=== PATIENT | female | born 1990 | race Caucasian/White ===

== ENCOUNTER 2020-01-03 17:42 | Emergency (ER) | payer OTHER ==
[2020-01-03 18:06] VITALS: TEMP 98; BMI 68.5
--- OUTSIDE RECORDS SUMMARY | 2020-01-03 18:10 | XMS ---
:1990 Author Organization [facility] Care Team Providers Name Role Phone CONNERBRYCE DOMINGUEZONY Unavailable Unavailable ED STAFF PHYSICIAN, STAFF Unavailable Unavailable ED STAFF PHYSICIANINEZ Unavailable Unavailable JERRY PADILLA Unavailable Unavailable Re-disclosure Warning The records that you are about to access may contain information from federally- assisted alcohol or drug abuse programs. If such information is present, then the following federally mandated warning applies: This information has been disclosed to you from records protected by federal confidentiality rules (42 CFR part 2). The federal rules prohibit you from making any further disclosure of this information unless further disclosure is expressly permitted by the written consent of the person to whom it pertains or as otherwise permitted by 42 CFR part 2. A general authorization for the release of medical or other information is NOT sufficient for this purpose. The Federal rules restrict any use of the information to criminally investigate or prosecute any alcohol or drug abuse patient.The records that you are about to access may contain highly sensitive health information, the redisclosure of which is protected by Article 27-F of the [facility] Public Health law. If you continue you may haveaccess to information: Regarding HIV / AIDS; Provided by facilities licensed or operated by the [facility] Office of Mental Health; or Provided by the [facility] Office for People With Developmental Disabilities. If such information is present, then the following [facility] mandated warning applies: This information has been disclosed to you from confidential records which are protected by state law. State law prohibits you from making any further disclosure of this information without the specific written consent of the person to whom it pertains, or as otherwise permitted by law. Any unauthorized further disclosure in violation of state law may result in a fine or custodial sentence or both. A general authorization for the release of medical or other information is NOT sufficient authorization for further disclosure. Encounters Encounter Providers Location Date Indications Data Source(s ) (TEL) Planned 12/17/2019 eCW2 ([facility] 12:00:00 Parentho od - Gaurav AM EDT [employer]) (TEL) Planned 12/17/2019 eCW2 ([facility] 12:00:00 Parentho od - Gaurav AM EDT [employer]) Outpatient Attender: 10/14/2019 R06.02 Z01.811 [facility] CONNER, 06:00:00 [facility] JADEAdmitter: AM EDT Care [facility] JADE PRIETOReferrer: JADE PRIETO R06.02 Z01.811 Outpatient Attender: VALERIE 10/09/2019 04:16:00 Z03.818 [facility] JERRY SahaAdmitter: EDT [facility] Care JERRY PADILLA Corporatio n E.Referrer: JERRY PADILLA Z03.818 Emergency Attender: INEZ ED STAFF H 05/17/2019 09:35:00 PM [facility] PHYSICIANAttender: STAFF ED EST - 05/18/2019 Medical Center STAFF PHYSICIANAdmitter: 01:43:00 AM EST INEZ ED STAFF PHYSICIAN Patient discharged. Unlisted evaluation 05/05/2019 02:00:00 NETSMART (Mental and management EST Health Ass ociation of service [place]) Outpatient [facility] 01/26/2019 12:00:00 e CW3 ([facility] A28 AM EST - 01/26/2019 Health Care) 12:00:00 AM EST Emergency H 12/13/2018 06:21:00 [facility] PM EDT - 12/14/2018 Cente r 01:55:00 AM EDT Patient discharged. Unlisted evaluation and 11/06/2018 02:44:00 PM EDT NETSMART (Mental Health management service [facility]) Medications Medication Brand Start Product Dose Route [facility] Indications Reaction Description Data Name Date Form Instructions Instructions Source(s) 24 HR Venlaf .0 Oral active NETSMART venlafaxine axine 2020 Capsu (Menta l 150 MG HCl 04:00: le Health Extended 00 AM Associatio Release EDT n of Oral [place] Capsule r) 24 HR Venlaf .0 Oral active NETSMART venlafaxine axine 2020 Capsu (Menta l 75 MG HCl 04:00: le Health Extended 00 AM Associatio Release EDT n of Oral [place] Capsule r) Trazodone traZOD .0 Oral active NETS MART Hydrochlori one 2020 Table (Mental de 50 MG hydroc 04:00: t Health Oral Tablet hlorid 00 AM Assoc iatio e EDT n of [place] r) Chlorthalid Chlort 1.0 active Chlorth alido eCW3 one 25 MG halido 2020 {tabl ne 25 MG (Hu dson Oral Tablet ne 25 12:00: et_in Rive r MG 00 AM _the_ Health EDT morni Care) ng_wi th_fo od} Chlorthalid Chlort .0 active Chlorth alido eCW3 one 25 MG halido 2020 {tabl ne 25 MG (Hu dson Oral Tablet ne 25 12:00: et_in Rive r MG 00 AM _the_ Health EDT morni Care) ng_wi th_fo od} Insurance Providers Payer name Policy type Policy ID Covered Covered constitution party's Policy P vidhya / Coverage constitution party ID relationship to [place] Inf ormation type la GIULIA [id number] [facility] GIULIA CARE W [id number] [place] [id number] S [id number] Regular Clinic Visit Problems, Conditions, and Diagnoses Code Display Name Description Problem Type Effective Data Sour ce(s) Dates [id number] Generalized Generalized Complaint 05/28/2019 NETSMART anxiety disorder anxiety disorder 02:00:00 PM ( Mental Health EDT [facility]) [id number] Depressive Depressive Complaint 05/28/2019 NETSMART disorder disorder [facility]:00:00 [facility] Z01.811 Encounter for ENCOUNTER FOR Diagnosis 10/14/2019 [facility] preprocedural PREPROCEDURAL 06:00:00 AM [facility] respiratory RESPIRATORY EDT Care examination [employer] R06.02 Shortness of SHORTNESS OF Diagnosis 10/14/2019 [facility] r breath BREATH 06:00:00 AM [facility] EDT Care [facility] Z03.818 Encounter for ENCNTR FOR OBS Diagnosis 10/09/2019 [facility] observation for FOR SUSP EXPSR TO 04:16:00 PM [employer] suspected exposure OTH BIOLG AGENTS EDT Care to other [employer] biological agents ruled out J40 Bronchitis, not BRONCHITIS, NOT Diagnosis 05/17/2019 [facility] specified as acute SPECIFIED 09:35:00 PM Med ical Center or chronic ACUTE OR CHRONIC EST R52 Pain, unspecified PAIN, UNSPECIFIED Diagnosis 05/17/2019 [facility] 09:35:00 PM Medical Cente r EST J45.909 Unspecified UNSPECIFIED Diagnosis 12/13/2018 [facility] asthma, ASTHMA, 06:21:00 PM Medical Cente r uncomplicated UNCOMPLICATED EDT G44.209 Tension-type TENSION-TYPE Diagnosis 12/13/[address] [facility] headache, HEADACHE, 06:21:00 PM Medical Cente r unspecified, not UNSPECIFIED, NOT EDT intractable INTRACTABLE G43.809 Other migraine, OTHER MIGRAINE, Diagnosis 12/13/2018 [facility] not intractable, NOT INTRACTABLE, 06:21:00 PM edical Center without status WITHOUT STATUS EDT migrainosus MIGRAINOSUS R11.10 Vomiting, VOMITING, Diagnosis 12/13/2018 [facility] unspecified UNSPECIFIED 06:21:[address] EDT Surgeries/Procedures Procedure Description Date Indications Data Source(s) Alcohol and/or drug 06/12/2019 NETSMART (Mental Health screening 04:35:00 PM EDT [facility]) Results ID Date Data Source [id number] 10/19/2019 10:00:00 PM EDT [facility] Name Value Range Interpretation Code Description Data Shiloh rce(s) Supporting Document(s ) SARS-CoV-2 [facility] BY PCR This lab was ordered by MIKAL Moreno and reported by [facility]. ID Date Data Source Urinalysis.[id number] 12/13/2018 08:30:00 PM EDT [facility] 0 Name Value Range Interpretation Description Data Sup porting Code Source(s) Document(s ) Color of Urine YELLOW <content Saint styleCode="Ricardo Liliana d">Color, Medical Urine Center </content>YELL OW <content styleCode="Love lics"> (YELLOW )</content> UNK CLEAR <content [facility] styleCode="Ricardo Liliana d">Urine Medical Clarity Center </content>YAHAIRA R <content styleCode="Love lics"> (CLEAR )</content> Glucose NEGATIVE <content Saint [Mass/volume] styleCode="Ricardo Liliana in Urine by d">Urine Medical Test strip Glucose Center </content>NEGA TIVE MG/DL<content styleCode="Love lics"> (NEGATIVE MG/DL)</conten t> Ketones NEGATIVE <content [facility] [Mass/volume] styleCode="Ricardo Liliana in Urine by d">Urine Medical Test strip Ketone Center </content>NEGA TIVE MG/DL<content styleCode="Love lics"> (NEGATIVE MG/DL)</conten t> UNK NEGATIVE <content Saint styleCode="Ricardo Liliana d">Urine Medical Bilirubin Center </content>NEGA TIVE <content styleCode="Love lics"> (NEGATIVE )</content> pH of Urine by 4.5-8.0 <content Saint Test strip styleCode="Ricardo Liliana d">Urine pH Medical </content>7.0 Center <content styleCode="Love lics"> (4.5-8.0 )</content> Protein NEGATIVE <content Saint [Mass/volume] styleCode="Ricardo Liliana in Urine by d">Urine Medical Test strip Protein Center </content>TRAC E MG/DL<content styleCode="Love lics"> (NEGATIVE MG/DL)</conten t> Hemoglobin NEGATIVE <content Saint [Presence] in styleCode="Ricardo Johnsons Urine by Test d">Urine Blood Medical strip </content>TRAC Center E <content styleCode="Love lics"> (NEGATIVE )</content> Specific 1.015-1.02 <content Saint gravity of 5 styleCode="Ricardo Liliana Urine by Test d">Urine Medical strip Specific Center [place] </content>1.01 5 <content styleCode="Love lics"> (1.015-1.025 )</content> Leukocyte NEGATIVE <content [facility] esterase styleCode="Ricardo Liliana [Presence] in d">Urine Medical Urine by Test Leukocyte Center strip </content>TRAC E <content styleCode="Love lics"> (NEGATIVE )</content> Urobilinogen 0.2-1.0 <content Saint [Units/volume] styleCode="Ricardo Johnsons in Urine by d">Urine Medical Test strip Urobilinogen Center </content>0.2 MG/DL<content styleCode="Love lics"> (0.2-1.0 MG/DL)</conten t> Nitrite NEGATIVE <content Saint [Presence] in styleCode="Ricardo Johnsons Urine by Test d">Urine Medical strip Nitrite Center </content>POSI TIVE <content styleCode="Love lics"> (NEGATIVE )</content> UNK 0-3 <content Saint styleCode="Ricardo Liliana d">Urine Red Medical Blood Cell Center </content>0-3 HPF<content styleCode="Love lics"> (0-3 HPF)</content> UNK 0-3 <content Saint styleCode="Ricardo Liliana d">Urine White Medical Blood Cell Center </content>10 - 20 HPF<content styleCode="Love lics"> (0-3 HPF)</content> UNK <content Saint styleCode="Ricardo Liliana d">Epithelial Medical Cell Center </content>> 50 LPF (Reference Range: not available)<br/ > ID Date Data Source Microbiology.[id number] 12/13/2018 08:30:00 PM EDT [facility] 400 Name Value Range Interpretation Code Description Data Shiloh rce(s) Supporting Document(s ) UNK <item><content [facility] styleCode="Bold"> Medical [facility] Culture Report </content>
<t able><tbody><tr>< td>Specimen Number:</td><td>[id number]</td></tr ><tr><td>Sample Collection Date/Time: </td><td> 9 8:30 PM</td></tr><tr>< td>Specimen Source:</td><td>U RINE</td></tr><tr ><td>Urine Culture:</td><td> Collection Plate Date: 12/13/2018 20:44 </td></tr><tr><td >Culture Status:</td><td>P reliminary </td></tr><tr><td >Culture Report:</td><td>C ulture in progress </td></tr></tbody ></table></item> UNK <item><content [facility] styleCode="Bold"> Medical [facility] Culture Status </content>
<t able><tbody><tr>< td>Specimen Number:</td><td>[id number]</td></tr ><tr><td>Sample Collection Date/Time: </td><td> 9 8:30 PM</td></tr><tr>< td>Specimen Source:</td><td>U RINE</td></tr><tr ><td>Culture Status:</td><td>P reliminary </td></tr><tr><td >Culture Report:</td><td>C ulture in progress </td></tr><tr><td >Urine Culture:</td><td> Collection Plate Date: 12/13/2018 20:44 </td></tr></tbody ></table></item> ID Date Data Source Liver 12/13/2018 08:30:[address] [facility] Profile.[id number] Name Value Range Interpretation Description Data Sup porting Code Source(s) Document(s ) Aspartate 14-36 <content [facility] aminotransferase styleCode="Bold"> Enzo hs [Enzymatic Aspartate Medical activity/volume] Aminotransferase Center in Serum or Plasma (AST) </content>21 IU/L<content styleCode="Italic s"> (14-36 IU/L)</content> Alkaline 38-126 <content [facility] phosphatase styleCode="Bold"> Liliana [Enzymatic Alkaline Medical activity/volume] Phosphatase (ALP) Cente r in Serum or Plasma </content>99 IU/L<content styleCode="Italic s"> (38-126 IU/L)</content> Alanine 7-30 <content [facility] aminotransferase styleCode="Bold"> Enzo hs [Enzymatic Alanine Medical activity/volume] Aminotransferase Center in Serum or Plasma (ALT) </content>8 IU/L<content styleCode="Italic s"> (7-30 IU/L)</content> Bilirubin.total 0.2-1.3 <content [facility] [Mass/volume] in styleCode="Bold"> Enzo hs Serum or Plasma Bilirubin Total Medical </content>0.4 Center MG/DL<content styleCode="Italic s"> (0.2-1.3 MG/DL)</content> Albumin 3.5-5.0 <content Saint [Mass/volume] in styleCode="Bold"> Enzo hs Serum or Plasma Albumin Medical </content>3.6 Center G/DL<content styleCode="Italic s"> (3.5-5.0 G/DL)</content> UNK 0.0-0.3 <content Saint styleCode="Bold"> Liliana Bilirubin, Direct Medical </content>< 0.2 Center MG/DL<content styleCode="Italic s"> (0.0-0.3 MG/DL)</content> ID Date Data Source HematologyRou.[id number] 12/13/2018 08:30:00 PM EDT [facility] 0400 Name Value Range Interpretation Description Data Sup porting Code Source(s) Document(s ) Hematocrit 36.0-46. Below low normal <content Saint [Volume 0 styleCode="Bold Liliana Fraction] of ">Hematocrit Medical Blood by </content>34.4 Center Automated count % L<content styleCode="Ital ics"> (36.0-46.0 %)</content> Hemoglobin 12.3-16. Below low normal <content Saint [Mass/volume] in 0 styleCode="Bold Liliana Blood ">Hemoglobin Medical </content>10.8 Center G/DL L<content styleCode="Ital ics"> (12.3-16.0 G/DL)</content> Erythrocyte mean 80.0-100 <content Saint corpuscular .0 styleCode="Bold Liliana volume [Entitic ">Mean Medical volume] by Corpuscular Center Automated count Volume </content>74.9 FL<content styleCode="Ital ics"> (80.0-100.0 FL)</content> Erythrocytes 4.0-5.1 <content Saint [#/volume] in styleCode="Bold Liliana Blood by ">Red Blood Medical Automated count Cell Count Center </content>4.59 MCUMM<content styleCode="Ital ics"> (4.0-5.1 MCUMM)</content > Leukocytes 4.4-11.0 Above high <content Saint [#/volume] in normal styleCode="Bold Liliana Blood by ">White Blood Medical Automated count Cell Count Center </content>12.62 KCUMM H<content styleCode="Ital ics"> (4.4-11.0 KCUMM)</content > UNK 0 <content Saint styleCode="Bold Liliana ">Nucleated Red Medical Blood Cell Center </content>0.0 /100<content styleCode="Ital ics"> (0 /100)</content> Platelet mean 8.0-11.0 <content Saint volume [Entitic styleCode="Bold Liliana volume] in Blood ">Mean Platelet Medical by Automated Volume Center count </content>10.6 FL<content styleCode="Ital ics"> (8.0-11.0 FL)</content> Erythrocyte 11.5-14. Above high <content Saint distribution 5 normal styleCode="Jazmine [facility] width [Ratio] by ">Red Cell Medical Automated count Distribution Center Width </content>16.1 % H<content styleCode="Ital ics"> (11.5-14.5 %)</content> Erythrocyte mean 32.0-37. Below low normal <content [facility] corpuscular 0 styleCode="Bold Liliana hemoglobin ">Mean Corpus. Medical concentration Hgb Center [Mass/volume] by Concentration Automated count (MCHC) </content>31.4 G/DL L<content styleCode="Ital ics"> (32.0-37.0 G/DL)</content> Erythrocyte mean 26.0-34. Below low normal <content [facility] corpuscular 0 styleCode="Bold Liliana hemoglobin ">Mean Medical [Entitic mass] Corposcular Center by Automated Hemoglobin count </content>23.5 PG L<content styleCode="Ital ics"> (26.0-34.0 PG)</content> Platelets 130-400 Above high <content Saint [#/volume] in normal styleCode="Bold Liliana Blood by ">Platelet Medical Automated count Count Center </content>415 KCUMM H<content styleCode="Ital ics"> (130-400 KCUMM)</content > UNK 0.0 <content Saint styleCode="Bold Liliana ">Nucleated Red Medical Blood Cell Center Count </content>0.00 KCUMM<content styleCode="Ital ics"> (0.0 KCUMM)</content > ID Date Data Source GFR(Creatinine).[id number] 12/13/2018 08:30:00 PM EDT [facility] 0-0400 Name Value Range Interpretation Code Description Data Shiloh rce(s) Supporting Document(s ) UNK > 60 <content [facility] styleCode="Bold"> Medical Cent er EGFR </content>125 GFR<content styleCode="Italic s"> (> 60 GFR)</content> ID Date Data Source CHMROUTINECCDA.[id number] 12/13/2018 08:30:00 PM EDT [facility] -0400 Name Value Range Interpretation Description Data Sup porting Code Source(s) Document(s ) Lipase 23-300 <content Saint [Enzymatic styleCode="[facility] activity/volume d">Lipase Medical ] in Serum or </content>36 Center Plasma IU/L<content styleCode="Love lics"> (23-300 IU/L)</content > Cannabinoids <content Saint [Presence] in styleCode="[facility] Urine by Screen d">Cannabinoid Medical method >50 s Center ng/mL </content>NEGA TIVE NG/ML (Reference Range: not available)<br/ > ID Date Data Source [facility].[id number] 12/13/2018 08:30:00 PM EDT [facility] Name Value Range Interpretation Description Data Sup porting Code Source(s) Document(s ) Sodium 137-145 <content Saint [Moles/volume] in styleCode="Bold"> Mikal [facility] Serum or Plasma Sodium Medical </content>140 Center MEQ/L<content styleCode="Italic s"> (137-145 MEQ/L)</content> Potassium 3.5-5.3 <content Saint [Moles/volume] in styleCode="Bold"> Mikal [facility] Serum or Plasma Potassium Medical </content>4.1 Center MEQ/L<content styleCode="Italic s"> (3.5-5.3 MEQ/L)</content> Chloride 98-107 <content Saint [Moles/volume] in styleCode="Bold"> Mikal phs Serum or Plasma Chloride Medical </content>105 Center MEQ/L<content styleCode="Italic s"> (98-107 MEQ/L)</content> Creatinine 0.5-1.3 <content Saint [Mass/volume] in styleCode="Bold"> Enzo hs Serum or Plasma Creatinine Medical </content>0.6 Center MG/DL<content styleCode="Italic s"> (0.5-1.3 MG/DL)</content> Glucose 74-106 <content Saint [Mass/volume] in styleCode="Bold"> Enzo hs Serum or Plasma Glucose Medical </content>86 Center MG/DL<content styleCode="Italic s"> (74-106 MG/DL)</content> Carbon dioxide, 22-30 <content Saint total styleCode="Bold"> Liliana [Moles/volume] in Carbon Dioxide Medical Serum or Plasma </content>27 Center MEQ/L<content styleCode="Italic s"> (22-30 MEQ/L)</content> UNK 7-17 <content Saint styleCode="Bold"> Liliana BUN </content>8 Medical MG/DL<content Center styleCode="Italic s"> (7-17 MG/DL)</content> UNK > 60 <content Saint styleCode="Bold"> Liliana EGFR Medical </content>125 Center GFR<content styleCode="Italic s"> (> 60 GFR)</content> Aspartate 14-36 <content [facility] aminotransferase styleCode="Bold"> Enzo hs [Enzymatic Aspartate Medical activity/volume] Aminotransferase Center in Serum or Plasma (AST) </content>21 IU/L<content styleCode="Italic s"> (14-36 IU/L)</content> Alkaline 38-126 <content [facility] phosphatase styleCode="Bold"> Liliana [Enzymatic Alkaline Medical activity/volume] Phosphatase (ALP) Cente r in Serum or Plasma </content>99 IU/L<content styleCode="Italic s"> (38-126 IU/L)</content> Bilirubin.total 0.2-1.3 <content Saint [Mass/volume] in styleCode="Bold"> Enzo hs Serum or Plasma Bilirubin Total Medical </content>0.4 Center MG/DL<content styleCode="Italic s"> (0.2-1.3 MG/DL)</content> Calcium 8.4-10. <content Saint [Mass/volume] in 2 styleCode="Bold"> Enzo hs Serum or Plasma Calcium Medical </content>8.9 Center MG/DL<content styleCode="Italic s"> (8.4-10.2 MG/DL)</content> Alanine 7-30 <content [facility] aminotransferase styleCode="Bold"> Enzo hs [Enzymatic Alanine Medical activity/volume] Aminotransferase Center in Serum or Plasma (ALT) </content>8 IU/L<content styleCode="Italic s"> (7-30 IU/L)</content> Albumin 3.5-5.0 <content Saint [Mass/volume] in styleCode="Bold"> Enzo hs Serum or Plasma Albumin Medical </content>3.6 Center G/DL<content styleCode="Italic s"> (3.5-5.0 G/DL)</content> Procedure Social History Code Duration Value Status Description Data Source(s ) Smoking 09/14/2019 Never Smoker completed Never Smoker eCW3 ([facility] 12:00:00 AM [facility]) Smoking 06/22/2019 Never Smoker completed Never Smoker eCW3 ([facility] 12:00:00 AM [facility]) Smoking 05/17/2019 Denies Ever completed Denies Ever Smoked [facility] 10:55:00 PM EST Smoked Medical C enter Smoking 05/17/2019 Denies Ever completed Denies Ever Smoked [facility] 10:05:00 PM EST Smoked Medical C enter Smoking 05/17/2019 Denies Ever completed Denies Ever Smoked [facility] 09:54:00 PM EST Smoked Medical C enter Smoking 12/13/2018 Denies Ever completed Denies Ever Smoked [facility] 09:36:00 PM EDT Smoked Medical C enter Smoking 12/13/2018 Denies Ever completed Denies Ever Smoked [facility] 09:13:00 PM EDT Smoked Medical C enter Smoking 12/13/2018 Denies Ever completed Denies Ever Smoked [facility]iana 06:55:00 PM EDT Smoked Medical C enter Vital Signs ID Date Data Source UNK Name Value Range Interpretation Code Description Data Source(s) Body temperature 36.091653 36.074942 Aicha [facility] Respiratory rate 17 /min 17 /min [facility] Oxygen saturation 98 % 98 % [facility] osephs in Arterial blood [facility] Center by Pulse oximetry Heart rate 86 /min 86 /min [facility] Diastolic blood 76 mm[Hg] 76 mm[Hg] [facility] Systolic blood 132 mm[Hg] 132 mm[Hg] [facility] Body temperature 37.731686 37.329675 Aicha [facility] Respiratory rate 20 /min 20 /min [facility] Oxygen saturation 99 % 99 % [facility] in Arterial blood [facility] Center by Pulse oximetry Heart rate 85 /min 85 /min [facility] Diastolic blood 72 mm[Hg] 72 mm[Hg] [facility] Systolic blood 146 mm[Hg] 146 mm[Hg] [facility] Diastolic blood 75 mm[Hg] 75 mm[Hg] eCW3 ([facility]) Systolic blood 111 mm[Hg] 111 mm[Hg] eCW3 ([facility]) Body temperature 97.9 [degF] 97.9 [degF] eCW3 ( [facility]) Body mass index 58.89 kg/m2 58.89 kg/m2 eCW3 ([facility] [Ratio] [facility]) Body weight 322 [lb_av] 322 [lb_av] eCW3 ([facility]) Body height 62 [in_i] 62 [in_i] eCW3 ([facility]) Oxygen saturation 98 % 98 % [facility] blood [facility] Center by Pulse oximetry Heart rate 72 /min 72 /min [facility] Diastolic blood 94 mm[Hg] 94 mm[Hg] [facility] Systolic blood 142 mm[Hg] 142 mm[Hg] [facility] Body temperature 36.025824 36.424141 Aicha [facility] Respiratory rate 18 /min 18 /min [facility] Respiratory rate 18 /min 18 /min [facility] Oxygen saturation 100 % 100 % [facility] in Arterial blood [facility] by Pulse oximetry Heart rate 98 /min 98 /min [facility] Diastolic blood 92 mm[Hg] 92 mm[Hg] [facility] Systolic blood 145 mm[Hg] 145 mm[Hg] [facility] Body weight 136.454974 136.050987 kg [facility] Measured kg Medical Center Body temperature 36.709115 36.009942 Aicha [facility] Respiratory rate 20 /min 20 /min [facility] Oxygen saturation 98 % 98 % [facility] Shabbir monroybree in Arterial blood [facility] Center by Pulse oximetry Heart rate 88 /min 88 /min [facility] Body height [phone] 160.455508 cm [facility] Diastolic blood 57 mm[Hg] 57 mm[Hg] [facility] Systolic blood 143 mm[Hg] 143 mm[Hg] [facility] pressure [facility] Body mass index 53.1 kg/m2 53.1 kg/m2 [facility] (BMI) [Ratio] [facility] Patient Treatment Plan of Care Planned Activity Planned Date Details Description Data Source (s) Chlorthalidone 25 MG Oral 06/22/2019 12:00:00 [id number] ([facility])
[2020-01-03] MEDS ORDERED: ACETAMINOPHEN 1000 MG/100 ML VIAL (NON FORMULARY) IVPB ONE (18:49)
[2020-01-03] MEDS ORDERED: SODIUM CHLORIDE 0.9% 500 ML INFUS.BAG IV ONE (18:49)
[2020-01-03] MEDS ORDERED: ACETAMINOPHEN INJECTION 100 ML IVPB ONE (19:10)
--- NOTE | 2020-01-03 19:37 | PDOC ---
History of Present Illness - General Chief Complaint: Pain Stated Complaint: ABD PAIN/ SWELLING Time Seen by Provider: 01/03/20 18:21 History Source: Patient Exam Limitations: No Limitations - History of Present Illness Initial Comments: 01/03/20 19:32 29-year-old female history of insomnia, bilateral lower extremity edema for which she intermittently takes chlorthalidone 25mg, history of UTI, last UTI 3 years ago, presents to the ED complaining of pelvic pressure and d iscomfort x 3 days. Denies dysuria, hematuria, vaginal discharge, vaginal bleeding. Patient denies being sexually active since March 2019. Patient took a home test last week which was negative. Denies fever, chills, back pain, chest pain, shortness of breath, nausea, vomiting, diarrhea, recent sick contacts, recent antibiotic use. Patient took acetaminophen 1000 mg at approximately 6 AM today. Patient in the process of considering gastric sleeve, in discussions with her PMD. ROS: as above PE: GENERAL: well-appearing, NAD, morbidly obese HEAD: NCAT EYES: Pupils equal, round and reactive to light, sclera anicteric, conjunctiva clear ENT: pharynx: no erythema, no exudate, uvula midline NECK: supple CHEST: nontender RESP: clear, no w/r/r CARDIO: rrr, no m/g/r ABD: +BS, soft, suprapubic tenderness to palpation, positive striae BACK: no midline spinal ttp, no CVAT EXTREMITIES: Bilateral lower extremity non pitting edema, normal range of motion NEUROLOGICAL: Normal speech, normal gait SKIN: Warm, Dry Is this a multiple visit Asthma Patient?: No Past History - Medical History Allergies/Adverse Reactions: Allergies Allergy/AdvReac Type Severity Reaction Status Date / Time dextromethorphan Allergy Severe Swelling Verified 01/03/20 18:03 formula 44 Allergy Severe Swelling Uncoded 01/03/20 18:03 Home Medications: Ambulatory Orders Ferrous Sulfate 1 03/26/13 Vitamins (Sjr) - 03/26/13 Acetaminophen [Tylenol .Regular Strength -] 650 mg PO Q3H PRN #0 tablet 03/28/13 Benzocaine [Americaine 20% Gamerco -] 1 spray TP PRN PRN #0 spraybtl 03/28/13 Ferrous Sulfate [Feosol] 325 mg PO BID #0 ud 03/28/13 Vitamins (Sjr) - 1 tab PO DAILY #0 tablet 03/28/13 Witch Elda 50% (Tucks) [Tucks Pads -] 1 pad TP PRN PRN #0 pad 03/28/13 Cephalexin Monohydrate [Keflex -] 500 mg PO Q8H 7 Days #21 capsule 01/03/20 Asthma: Yes (LAST ATTACK 2 YEARS AGO) Cancer: No Cardiac Disorders: No COPD: No Diabetes: No HTN: No Seizures: No Thyroid Disease: No - Reproductive History Is Patient Now?: No (#): 5 Para: 2 Cervical CA: No Dysfunctional Uterine Bleeding: No Ectopic : No Endometrial CA: No Polycystic Ovaries: No Therapeutic (s) & number: Yes (1) Tubal Ligation: No Spontaneous : 1 - Psycho-Social/Smoking History Smoking Status: No Smoking History: Never smoked Have you smoked in the past 12 months: No Number of Cigarettes Smoked Daily: 0 - Substance Abuse Hx (Audit-C & DAST Scrn) How often the patient has a drink containing alcohol: 2-4 times / month Score: In Men: 4 or > Positive; In Women: 3 or > Positive: 2 Screen Result (Pos requires Nsg. Audit-10AR): Negative *Physical Exam - Vital Signs Last Vital Signs Temp Pulse Resp BP Pulse Ox 98 F 89 18 165/84 100 01/03/20 17:59 01/03/20 17:59 01/03/20 17:59 01/03/20 17:59 01/03/20 17:59 ED Treatment Course - LABORATORY CBC & Chemistry Diagram: 01/03/20 19:20 01/03/20 20:31 - Medications Given in the ED: ED Medications Discontinued Medications Generic Name Dose Route Start Last Admin Trade Name Freq PRN Reason Stop Dose Admin Acetaminophen 1,000 mg 01/03/20 18:49 01/03/20 19:28 Ofirmev Injection - IVPB 01/03/20 18:50 1,000 mg ONCE ONE Administration Sodium Chloride 1,000 ml 01/03/20 18:49 01/03/20 19:28 Normal Saline - IV 01/03/20 18:50 1,000 ml ONCE ONE Administration Medical Decision Making - Medical Decision Making 01/03/20 19:36 29-year-old female history of insomnia, bilateral lower extremity edema for which she intermittently takes chlorthalidone 25mg, history of UTI, last UTI 3 years ago, presents to the ED complaining of pelvic pressure and discomfort x 3 days. Denies dysuria, hematuria, vaginal discharge, vaginal bleeding. Patient denies being sexually active since March 2019. Patient took a home test last week which was negative. Denies fever, chills, back pain, chest pain, shortness of breath, nausea, vomiting, diarrhea, recent sick contacts, recent antibiotic use. Patient took acetaminophen 1000 mg at approximately 6 AM today. Patient in the process of considering gastric sleeve, in discussions with her PMD. Labs including UA and urine culture Urine IV fluids and acetaminophen Reassess 01/03/20 21:12 Reviewed labs with patient, including wbc 14k Positive UA, IV ceftriaxone given in the ED IV Toradol and IV fluids We will discharge patient with prescription for cephalexin Return precautions discussed Patient advised to follow-up with PMD within 2 to 3 days 01/03/20 21:13 Discharge - Discharge Information Problems reviewed: Yes Clinical Impression/Diagnosis: Lower abdominal pain Condition: Stable Disposition: HOME - Admission No - Additional Discharge Information Prescriptions: Cephalexin Monohydrate [Keflex -] 500 mg PO Q8H 7 Days #21 capsule - Follow up/Referral Referrals: Joanie Villalta NP [Primary Care Provider] - - Patient Discharge Instructions Additional Instructions: Remain hydrated Take cephalexin 500 mg 1 tablet every 8 hours for 7 days Follow-up with your doctor within 2 to 3 days Return to ED if you develop fever, chills, back pain, vomiting, worsening abdominal pain or any other symptoms - Post Discharge Activity
[2020-01-03 19:39] LABS: BASO % 0.8 % (0-2.0); EOS % 1.7 % (0-4.5); HEMATOCRIT 30.9 % (32.4-45.2); HEMOGLOBIN 9.8 GM/dL (10.7-15.3); LYMPH % 17.3 % (8-40); MCH 22.9 pg (25.7-33.7); MCHC 31.8 g/dl (32.0-36.0); MEAN PLT VOLUME 8.4 fl (7.5-11.1); MONO % 5.4 % (3.8-10.2); NEUT % 74.8 % (42.8-82.8); PLATELET COUNT 391 K/MM3 (134-434); RBC 4.29 M/mm3 (3.60-5.2); RDW 17.6 % (11.6-15.6)
[2020-01-03 19:58] LABS: POTASSIUM 5.9 mmol/L (3.5-5.1)
[2020-01-03 20:01] LABS: ALBUMIN 3.3 g/dl (3.4-5.0)
[2020-01-03 20:03] LABS: CREATININE 0.6 mg/dL (0.55-1.3); HCG,QUALITATIVE URINE Negative
[2020-01-03 20:05] LABS: BILIRUBIN,TOTAL 0.6 mg/dL (0.2-1); EPI CELLS 24 /uL (0-25.1); HYALINE CASTS 1 /uL (0-3.1); PH,URINE 6.5 (5.0-8.0); TOT PROT 8.2 g/dl (6.4-8.2); URINE APPEARANCE CLOUDY; URINE BACTERIA >9,000 /uL (0-1359); URINE BILIRUBIN NEGATIVE (NEGATIVE); URINE COLOR YELLOW; URINE GLUCOSE (UA) NEGATIVE (NEGATIVE); URINE KETONE NEGATIVE (NEGATIVE); URINE LEUK ESTERASE 2+ (NEGATIVE); URINE NITRITE POSITIVE (NEGATIVE); URINE PROTEIN 1+ (NEGATIVE); URINE UROBILINOGEN 0.2 mg/dL (0.2-1.0); URINE WBC 1542 /uL (0-25.8)
[2020-01-03] MEDS ORDERED: cefTRIAXone SODIUM 1 GM VIAL ONE (20:17)
[2020-01-03] MEDS ORDERED: KETOROLAC TROMETHAMINE 30 MG/1 ML VIAL IVPUSH ONE (20:40)
[2020-01-03] MEDS ORDERED: KETOROLAC TROMETHAMINE 30 MG/1 ML VIAL IM ONE (20:54)
[2020-01-03] MEDS ORDERED: KETOROLAC TROMETHAMINE 30 MG/1 ML VIAL ONE (20:56)
[2020-01-03 21:10] LABS: CALCIUM 8.7 mg/dL (8.5-10.1)
[2020-01-03 21:11] LABS: ALBUMIN 3.2 g/dl (3.4-5.0); BLOOD UREA NITROGEN 9.5 mg/dL (7-18)
[2020-01-03 21:13] LABS: CREATININE 0.7 mg/dL (0.55-1.3)
[2020-01-03 21:15] LABS: BILIRUBIN,TOTAL 0.5 mg/dL (0.2-1); TOT PROT 7.6 g/dl (6.4-8.2)
[2020-01-03 21:19] VITALS: BP 144/89; PULSE 88
[2020-01-03 21:31] LABS: URINE RBC 74.5 /uL (0-23.9)
== END 2020-01-03 21:19 | disposition home or self-care (01) ==
LOC: JER 17:42
PROC: 3E03329 Introduction of Other Anti-infective into Peripheral Vein, Percutaneous Approach (ICD-10-PCS; principal; 2020-01-03)
PROC: 3E033GC Introduction of Other Therapeutic Substance into Peripheral Vein, Percutaneous Approach (ICD-10-PCS; 2020-01-03)
PROC: 3E0233Z Introduction of Anti-inflammatory into Muscle, Percutaneous Approach (ICD-10-PCS; 2020-01-03)
DX: R10.30 Lower abdominal pain, unspecified (principal)
CPT/HCPCS: 36415; 80053; 81003; 83690; 84703; 85025; 87086; 87186; 99284-25; J0131

== ENCOUNTER 2024-04-09 09:25 | Emergency (ER) | payer OTHER ==
[2024-04-09 09:35] VITALS: BP 146/71; PULSE 78; RESP 20; TEMP 99.9; BMI 45.1
[2024-04-09] MEDS ORDERED: ACETAMINOPHEN 500 MG TABLET (FP) ONE (09:44)
[2024-04-09] MEDS ORDERED: METHOCARBAMOL 500 MG TABLET ONE (09:46)
[2024-04-09] MEDS: ACETAMINOPHEN 500 MG TABLET (FP) PO ONE (09:47)
[2024-04-09] MEDS: METHOCARBAMOL 500 MG TABLET PO ONE (09:48)
== END 2024-04-09 11:24 | disposition home or self-care (01) ==
LOC: JER 09:25
DX: J10.1 Influenza due to other identified influenza virus with other respiratory manifestations (principal); R20.2 Paresthesia of skin; R50.9 Fever, unspecified; R09.81 Nasal congestion; M79.10 Myalgia, unspecified site; M79.622 Pain in left upper arm; M25.512 Pain in left shoulder; Z20.822 Contact with and (suspected) exposure to COVID-19
CPT/HCPCS: 0241U-QW; 71046-TC-FY; 93005; 93010; 99285-25